=== PATIENT | female | born 1985 | race American Indian/Alaskan Native ===

== ENCOUNTER 2017-11-03 08:47 | Outpatient (CLI) | payer OTHER ==
--- NOTE | 2017-11-03 09:55 | Ultrasound Report ---
Pelvic sonogram: History: Pelvic pain. Findings: Uterus measures 7.5 x 3.9 x 5.3 cm. Endometrial thickness 6.9 mm. Single intrauterine device is noted in the right location at the endometrium. No myometrial mass. Right ovary 2.7 x 1.2 x 1.9 cm. Single cyst laterally measures 0.7 cm and a second cyst measures 0.9 cm. Left ovary 3.2 x 2.6 x 2.9 cm. Single cyst of the left ovary measures 1 cm and the second cyst measures 1.1 cm. Impression: Normal location of intrauterine device. Bilateral ovarian cysts.
== END 2017-11-03 08:48 | disposition home or self-care (01) ==
LOC: SPVWC 08:47
PROVIDERS: ATTEND Family Medicine
DX: N83.201 Unspecified ovarian cyst, right side (principal); N83.202 Unspecified ovarian cyst, left side; Z97.5 Presence of (intrauterine) contraceptive device
CPT/HCPCS: 76830; 76856

== ENCOUNTER 2018-03-27 11:43 | Outpatient (CLI) | payer OTHER ==
--- NOTE | 2018-03-27 13:29 | XRay Report ---
CHEST TWO VIEWS: 03/27/18 11:43:00 CLINICAL: Chest pain. COMPARISON: None FINDINGS: Normal heart and pulmonary vasculature. The lungs are normally expanded and clear.The bones and soft tissues are unremarkable. IMPRESSION: Normal chest.
== END 2018-03-27 11:44 | disposition home or self-care (01) ==
LOC: SPVIMAG 11:43
PROVIDERS: ATTEND Family Medicine
DX: J18.9 Pneumonia, unspecified organism (principal)
CPT/HCPCS: 71046